=== PATIENT | female | born 1950 | race Caucasian/White ===

== ENCOUNTER 2019-05-26 10:02 | Emergency (ER) | payer BC, MEDICARE ==
[2019-05-26] MEDS ORDERED: NORMAL SALINE 1000 ML 1,000 ML IV ONE (10:46)
--- NOTE | 2019-05-26 10:50 | ER Document Report ---
ED Medical Screen (RME) - General Chief Complaint: Dizziness Stated Complaint: DIZZINESS/CHEST PAIN Time Seen by Provider: 05/26/19 10:32 Mode of Arrival: Ambulatory Information source: Patient Notes: Patient presents complaining of dizziness whenever she bends down for the past 6 days. Patient states she has had some mild congestion. Patient also complains of left lower quadrant abdominal pain and left lower back pain. Patient states she has had diarrhea. Patient reports urinary frequency. Patient also complains of headache pain. Patient states that when she gets the dizziness it makes her feel faint. Patient was seen at an urgent care and given a prescription for meclizine. Patient states that it did not help her symptoms. I have greeted and performed a rapid initial assessment of this patient. A comprehensive ED assessment and evaluation of the patient, analysis of test results and completion of the medical decision making process will be conducted by additional ED providers. TRAVEL OUTSIDE OF THE [place] IN LAST 30 DAYS: No - Related Data Allergies/Adverse Reactions: No Known Allergies Allergy (Unverified 07/23/15 15:08) Past Medical History - Social History Frequency of alcohol use: None Drug Abuse: None - Past Medical History Cardiac Medical History: Denies: Hx Coronary Artery Disease, Hx Heart Attack, Hx Hypertension Pulmonary Medical History: Denies: Hx Asthma, Hx Bronchitis, Hx COPD, Hx Pneumonia Neurological Medical History: Denies: Hx Cerebrovascular Accident, Hx Seizures Musculoskeltal Medical History: Denies Hx Arthritis Past Surgical History: Reports: Hx Hysterectomy - Immunizations Hx Diphtheria, Pertussis, Tetanus Vaccination: No Physical Exam - Vital signs Vitals: Temp Pulse Resp BP Pulse Ox 98.1 F 76 16 144/68 H 98 05/26/19 10:18 05/26/19 10:18 05/26/19 10:18 05/26/19 10:18 05/26/19 10:18 - Cardiovascular Rhythm: Regular Heart sounds: S1 appreciated, S2 appreciated - Back Back: No: CVA tenderness Course - Vital Signs Vital signs: Temp Pulse Resp BP Pulse Ox 98.1 F 76 16 144/68 H 98 05/26/19 10:18 05/26/19 10:18 05/26/19 10:18 05/26/19 10:18 05/26/19 10:18
[2019-05-26 11:04] LABS: APPEARANCE,URINE CLEAR; BILIRUBIN,URINE NEGATIVE (NEGATIVE); COLOR,URINE STRAW; GLUCOSE, URINE NEGATIVE (NEGATIVE); KETONES,URINE NEGATIVE (NEGATIVE); LEUKOCYTE ESTERASE,URINE TRACE (NEGATIVE); NITRITE,URINE NEGATIVE (NEGATIVE); PROTEIN,URINE NEGATIVE (NEGATIVE); URINE SPECIFIC GRAVITY 1.003; UROBILINOGEN,URINE NEGATIVE mg/dL (<2.0)
[2019-05-26 11:17] LABS: ABSOLUTE LYMPHOCYTES (AUTO) 2.1 10^3/uL (0.5-4.7); ABSOLUTE MONOCYTES (AUTO) 0.7 10^3/uL (0.1-1.4); ABSOLUTE NEUT (AUTO) 5.1 10^3/uL (1.7-8.2); BASOPHILS % (AUTO) 0.6 % (0-2); EOSINOPHILS % (AUTO) 0.4 % (0-6); HEMOGLOBIN 13.3 g/dL (12.0-15.5); LYMPHOCYTES % (AUTO) 26.2 % (13-45); MEAN CORPUSCULAR HEMOGLOBIN 30.3 pg (27.0-33.4); MEAN CORPUSCULAR HGB CONC 34.9 g/dL (32.0-36.0); MEAN CORPUSCULAR VOLUME 87 fl (80-97); MONOCYTES % (AUTO) 9.2 % (3-13); PLATELET COUNT 235 10^3/uL (150-450); RED BLOOD COUNT 4.38 10^6/uL (3.72-5.28); RED CELL DISTRIBUTION WIDTH 12.9 % (11.5-14.0); SEGMENTED NEUTROPHILS % (AUTO) 63.6 % (42-78); TOTAL CELLS COUNTED % (AUTO) 100 %
[2019-05-26 11:31] LABS: ALBUMIN 4.8 g/dL (3.5-5.0); ALKALINE PHOSPHATASE 71 U/L (38-126); ANION GAP 11 (5-19); ASPARTATE AMINO TRANSFERASE 30 U/L (14-36); BILIRUBIN,DIRECT 0.2 mg/dL (0.0-0.4); BILIRUBIN,TOTAL 0.4 mg/dL (0.2-1.3); BLOOD UREA NITROGEN 10 mg/dL (7-20); CALCIUM 10.2 mg/dL (8.4-10.2); CARBON DIOXIDE 29 mmol/L (22-30); CHLORIDE 93 mmol/L (98-107); GLUCOSE 101 mg/dL (75-110); POTASSIUM 5.3 mmol/L (3.6-5.0); TOTAL PROTEIN 7.9 g/dL (6.3-8.2)
--- NOTE | 2019-05-26 11:32 | RADIOLOGY REPORT (SQ) ---
EXAM DESCRIPTION: CHEST 2 VIEWS COMPLETED DATE/TIME: 05/26/2019 11:17 am REASON FOR STUDY: dizziness COMPARISON: None. EXAM PARAMETERS: NUMBER OF VIEWS: Two views. TECHNIQUE: PA and lateral views of the chest were obtained.. RADIATION DOSE: NA LIMITATIONS: none FINDINGS: LUNGS AND PLEURA: Biapical subpleural opacities that could represent scarring. There is n o consolidation, pleural effusion or pneumothorax. MEDIASTINUM AND HILAR STRUCTURES: No mediastinal or hilar contour abnormality. HEART AND VASCULAR STRUCTURES: The cardiac silhouette and pulmonary vasculature are within normal bass[place] its. BONES: No acute findings. HARDWARE: None in the chest. OTHER: No other finding. IMPRESSION: No acute cardiopulmonary process. TECHNICAL DOCUMENTATION: JOB ID: [id number] [employer]- All Rights Reserved Reading location - IP/workstation name: [email or web address]
--- NOTE | 2019-05-26 12:07 | ER Document Report ---
ED General - General Chief Complaint: Dizziness Stated Complaint: DIZZINESS/CHEST PAIN Time Seen by Provider: 05/26/19 10:32 Primary Care Provider: WINDY NOVOA NP [Primary Care Provider] - Follow up as needed Mode of Arrival: Ambulatory TRAVEL OUTSIDE OF THE [place] IN LAST 30 DAYS: No - HPI Notes: Patient is a 68-year-old female who presents to the emergency department for evaluation of dizziness. She states that about a week ago she had some dizzi ness while in bed. It happened when she turned her head. She really cannot tell me whether or not the room spins, because she states it makes her feel like she is going to pass out, so she will keep her head turned long enough. She states has been able to control her symptoms. Several days later she bent over and came back up and felt like she was going to pass out and very dizzy. She has been following with her primary care provider. Her primary care provider did an EKG, was concerned that she had atrial fibrillation, and sent her here to the emergency department for further evaluation. The patient states she has had some intermittent pain from her left back into her left flank. She denies any fevers or chills. No nausea or vomiting. No chest pain or difficulty breathing. She is had no hematuria. Normal bowel movements. - Related Data Allergies/Adverse Reactions: No Known Allergies Allergy (Verified 05/26/19 11:28) Home Medications: None Past Medical History - General Information source: Patient - Social History Smoking Status: Never Smoker Frequency of alcohol use: None Drug Abuse: None Family History: Reviewed & Not Pertinent Patient has suicidal ideation: No Patient has homicidal ideation: No - Past Medical History Cardiac Medical History: Reports: Hx Hypercholesterolemia Denies: Hx Coronary Artery Disease, Hx Heart Attack, Hx Hypertension Pulmonary Medical History: Denies: Hx Asthma, Hx Bronchitis, Hx COPD, Hx Pneumonia EENT Medical History: Reports: Eyes - Glaucoma in left eye Neurological Medical History: Denies: Hx Cerebrovascular Accident, Hx Seizures Musculoskeletal Medical History: Denies Hx Arthritis Past Surgical History: Reports: Hx Appendectomy, Hx Hysterectomy, Hx Orthopedic Surgery - ankle, Hx Tubal Ligation - Immunizations Hx Diphtheria, Pertussis, Tetanus Vaccination: No Hx Pneumococcal Vaccination: 02/14/15 Review of Systems - Review of Systems Constitutional: See HPI Cardiovascular: See HPI Gastrointestinal: See HPI -: Yes All other systems reviewed and negative Physical Exam - Vital signs Vitals: Temp Pulse Resp BP Pulse Ox 98.1 F 76 16 144/68 H 98 05/26/19 10:18 05/26/19 10:18 05/26/19 10:18 05/26/19 10:18 05/26/19 10:18 - Notes Notes: Vital signs reviewed, please refer to chart. Head is normocephalic, atraumatic. Pupils equal round, reactive to light. Neck is supple without meningismus. Heart is regular rate and rhythm. Lungs are clear to auscultation bilaterally. Abdomen is soft, nontender, normoactive bowel sounds throughout. Extremities without cyanosis, clubbing. Posterior calves are nontender. Peripheral pulses are equal. Skin is warm and dry. Patient is awake, alert, neurological exam is nonfocal. Course - Re-evaluation Re-evalutation: 05/26/19 12:01 Patient presents to the emergency department for evaluation. She had had an EKG that was performed prior to arrival. There was a lot of baseline artifact, and the machine read as atrial fibrillation. To my evaluation, this was in fact sinus mechanism, significant baseline artifact, and PACs noted. Patient's repeat EKG here was definitely sinus mechanism. Her laboratory investigations are unremarkable. She has a completely normal neurological exam. Her orthostatics were performed and were found to be largely unremarkable. I do not have a clear cause for her dizziness, but she states this is being followed by her primary care provider and being controlled with head movement. She is in sinus, remained in sinus here throughout the course of her stay. She is to follow-up with her primary care provider, return to the ED with worsening or new concerning symptoms of any sort. 05/26/19 12:08 Chemistry reveals a mild hyper kalemia and a mild hyponatremia. She is given IV fluids. I do believe that this should be checked again, we will give her labs him to have this followed up with her primary care provider. - Vital Signs Vital signs: Temp Pulse Resp BP Pulse Ox 98.1 F 76 16 144/68 H 98 05/26/19 10:18 05/26/19 10:18 05/26/19 10:18 05/26/19 10:18 05/26/19 10:18 - Laboratory Result Diagrams: 05/26/19 11:00 05/26/19 11:00 Laboratory results interpreted by me: 05/26/19 05/26/19 10:16 11:00 Sodium 132.5 L Potassium 5.3 H Chloride 93 L Ur Leukocyte Esterase TRACE H - EKG Interpretation by Me Additional EKG results interpreted by me: 05/26/19 12:03 Sinus mechanism with rate of 75 bpm. Normal axis and intervals, no acute ST changes concerning for ischemia or infarction. Discharge - Discharge Clinical Impression: Near syncope, Hyperkalemia, Hyponatremia Condition: Stable Disposition: HOME, SELF-CARE Instructions: Dizziness (OM) Additional Instructions: Your EKG here today was normal. Your blood work revealed mildly high potassium, mildly low sodium. Please have these rechecked in 48 hours, results will be sent to your primary care provider. Return to the emergency department with worsening or new concerning symptoms of any sort. Otherwise, follow-up with your primary care provider this week. Forms: Follow-Up Laboratory Testing Referrals: WINDY NOVOA NP [Primary Care Provider] - Follow up as needed
[2019-05-26 12:30] VITALS: BP 130/66
--- NOTE | 2019-05-26 13:37 | EKG REPORT ---
SEVERITY:- BORDERLINE ECG - SINUS RHYTHM PROBABLE LEFT ATRIAL ABNORMALITY : Confirmed by: Dany Pierce MD 26-May-2019 13:36:41
== END 2019-05-26 12:51 | disposition home or self-care (01) ==
LOC: ER 10:02
DX: R55 Syncope and collapse (principal); E87.5 Hyperkalemia; E87.1 Hypo-osmolality and hyponatremia; R42 Dizziness and giddiness; R07.9 Chest pain, unspecified; E78.00 Pure hypercholesterolemia, unspecified; Z90.710 Acquired absence of both cervix and uterus
CPT/HCPCS: 36415; 71046; 80053; 81001; 84484; 85025; 93005; 93010; 96360; 99284; J7030